=== PATIENT | male | born 1995 | race Caucasian/White ===

== ENCOUNTER → 2020-11-25 | Outpatient (CLI) | payer OTHER ==
[2020-11-25 11:52] LABS: HEMOGLOBIN 15.9 gm/dl (14.0-17.5); RED BLOOD COUNT 5.33 M/UL (4.20-5.50)
[2020-11-25 13:59] LABS: BUN/CREATININE RATIO 15 (0-10)
[2020-11-26 09:13] LABS: CREATININE, URINE 165.9 mg/dL (Not Estab.)
== END ==
LOC: LAB 10:46
PROVIDERS: Family Medicine
DX: E11.9 Type 2 diabetes mellitus without complications (principal)
CPT/HCPCS: 36415; 80053; 80061; 82043; 82570; 84443; 85027